=== PATIENT | female | born 1980 | race Caucasian/White ===

== ENCOUNTER 2017-01-02 00:44 | Emergency (ER) | payer OTHER ==
[2017-01-02] MEDS ORDERED: Sodium Chloride 0.9% 1,000 ML IV ONE (00:55)
--- NOTE | 2017-01-02 00:55 | ED Physician Chart ---
Chief Complaint/HPI - Patient Information Date Seen:: 01/02/17 Time Seen:: 00:50 Chief Complaint:: anxiety attack History of Present Illness:: 36-year-old female brought in by EMS with acute, severe, constant, anxiety attack that started apparently about 1-2 hours prior to arrival to the ER. Has associated EtOH intoxication. Patient states that she also took a Gillett but is not in any pain. States that she is a vegan and thinks that maybe she ate something that was non-vegan. Says that she's been on all night long. Denies any suicidal ideations or thoughts. Allergies:: Allergies Allergy/AdvReac Type Severity Reaction Status Date / Time No Known Allergies Allergy Verified 01/02/17 00:52 Historian:: Patient Review:: Nurse's Note Reviewed Review of Systems - Review of Systems Other: Complete system review otherwise unremarkable except as noted in history of present illness. Past Medical History - Past Medical History Past Medical History: No significant medical hx Family History: None Social History: Non Smoker, Alcohol, No Drug Use Family Medical History - Family Member Mother History Unknown: Yes Physical Exam - Physical Examination Other:: INITIAL VITAL SIGNS: Reviewed by me GENERAL: Alert and interactive. Patient is emotional. Smells of alcohol. HEAD: Head is normocephalic and atraumatic EYES: EOMI. PERRL. No scleral icterus. No conjunctival injection ENT: Moist mucous membranes. NECK: Supple. No masses. Full range of motion RESPIRATORY: No tachypnea. Clear breath sounds bilaterally. No wheezing, rales, or rhonchi CV: Regular rate and rhythm. No murmurs, rubs, or gallops ABDOMEN: Soft, non-distended, non-tender. No guarding. No rebound. No masses. EXTREMITIES: No deformity. No cyanosis. No edema. SKIN: Warm and dry. No obvious rashes. NEUROLOGIC: Alert and oriented. Face is symmetric. Speech is normal. Moves all extremities equally. Motor and sensory distally intact. Labs/Radiology/EKG Results - Lab Results Results: Lab Results 01/02/17 01/02/17 01/02/17 Range/Units 00:50 00:50 01:00 WBC 7.4 (4.8-10.8) Th/cmm RBC 3.99 (3.80-5.10) Mil/cmm Hgb 12.3 (11.7-15.5) gm/dL Hct 35.5 (35.0-45.0) % MCV 88.9 (81-100) fl MCH 30.7 (27.0-31.0) pg MCHC Differential 34.6 (28.0-36.0) pg RDW 12.6 (11.5-20.0) % Plt Count 300 (150-400) Th/cmm MPV 7.3 fl Neutrophils % 38.0 L (40.0-80.0) % Lymphocytes % 52.3 H (20.0-50.0) % Monocytes % 6.4 (2.0-10.0) % Eosinophils % 2.7 (0.0-5.0) % Basophils % 0.6 (0.0-2.0) % Sodium 138 (136-145) mEq/L Potassium 3.7 (3.5-5.1) mEq/L Chloride 105 (98-107) mEq/L Carbon Dioxide 25.7 (21.0-31.0) mEq/L Anion Gap 11.0 (7.0-16.0) BUN 10 (7-25) mg/dL Creatinine 0.6 (0.6-1.2) mg/dL Est GFR ( Amer) > 60.0 (>90) ml/min Est GFR (Non-Af Amer) > 60.0 ml/min BUN/Creatinine Ratio 16.7 Glucose 97 (70-105) mg/dL Calcium 8.8 (8.6-10.3) mg/dL Total Bilirubin 0.2 L (0.3-1.0) mg/dL AST 19 (13-39) U/L ALT 15 (7-52) U/L Alkaline Phosphatase 43 (34-104) U/L Total Protein 6.7 (6.0-8.3) gm/dL Albumin 4.2 (3.7-5.3) gm/dL Globulin 2.5 gm/dL Albumin/Globulin Ratio 1.7 (1.0-1.8) Urine Source CLEAN C Urine Color YELLOW Urine Clarity HAZY (CLEAR) Urine pH 6.0 Ur Specific [place] 1.025 (1.005-1.030) Urine Protein NEGATIVE (NEGATIVE) mg/dL Urine Glucose (UA) NEGATIVE (NEGATIVE) mg/dL Urine Ketones TRACE (NEGATIVE) mg/dL Urine Blood TRACE (NEGATIVE) Urine Nitrate NEGATIVE (NEGATIVE) Urine Bilirubin NEGATIVE (NEGATIVE) Urine Urobilinogen 0.2 (0.2 - 1.0) E.U./dL Ur Leukocyte Esterase NEGATIVE (NEGATIVE) Urine RBC 0-2 (0-5) /hpf Urine WBC NONE SEEN (0-5) /hpf Ur Epithelial Cells MODERATE (FEW) /lpf Urine Bacteria FEW (NONE SEEN) /hpf ED Septic Shock - . Is Septic Shock (SBP<90, OR Lactate>4 mmol\L) present?: No Reassessment (Disposition) - Reassessment Reassessment:: This is a 36-year-old female arrived by ambulance with acute anxiety attack. She admitted that she was drinking alcohol prior to arrival. We held off on giving any Benzodiazepines. We did give IV normal saline. Says that she took a Gillett prior to arrival but had no pain. After some time patient was able to calm down. Entire time she was here she was alert and oriented 4. She had a steady gait was noted to walk to and from the bathroom without any assistance or gait abnormality. Labs were essentially unremarkable. Patient was discharged to home. Blood pressure was noted to be elevated over 120/80. There were no signs of hypertension. Discussed the findings with the patient and recommended that the patient follow up with the primary care physician regarding the elevated blood pressure. - Diagnosis Diagnosis:: Acute anxiety attack Elevated blood pressure without diagnosis of hypertension - Aftercare/Follow up Instructions Aftercare/Follow-Up Instructions:: Counseled pt regarding lab results/diagnosis & need follow up, Refer to Discharge Instructions - Patient Disposition Discharge/Transfer:: Home Time:: 01:29 Condition at Disposition:: Improved ED Discharge Plan - Patient Disposition Admit/Discharge/Transfer: PT DISCHARGED HOME Condition at Disposition: Improved Instructions: Anxiety and Panic Attacks
[2017-01-02 01:10] LABS: % BASOPHILS 0.6 % (0.0-2.0); % EOSINOPHILS 2.7 % (0.0-5.0); % LYMPHOCYTES 52.3 % (20.0-50.0); % MONOCYTES 6.4 % (2.0-10.0); HEMATOCRIT 35.5 % (35.0-45.0); HEMOGLOBIN 12.3 gm/dL (11.7-15.5); MEAN CELL VOLUME 88.9 fl (81-100); MEAN CORPUSCULAR HEMOGLOBIN 30.7 pg (27.0-31.0); MEAN CORPUSCULAR HGB CONC 34.6 pg (28.0-36.0); MEAN PLATELET VOLUME 7.3 fl; NEUTROPHILE ABSOLUTE 2.8 Th/cmm (1.8-8.0); PLATELET COUNT 300 Th/cmm (150-400); RED BLOOD COUNT 3.99 Mil/cmm (3.80-5.10); RED CELL DISTRIBUTION WIDTH 12.6 % (11.5-20.0); WHITE BLOOD COUNT 7.4 Th/cmm (4.8-10.8)
[2017-01-02 01:23] LABS: URINE BILIRUBIN NEGATIVE (NEGATIVE); URINE BLOOD TRACE (NEGATIVE); URINE COLOR YELLOW; URINE GLUCOSE (UA) NEGATIVE (NEGATIVE); URINE KETONE TRACE mg/dL (NEGATIVE); URINE PROTEIN NEGATIVE (NEGATIVE); URINE UROBILINOGEN 0.2 E.U./dL (0.2 - 1.0)
[2017-01-02 01:26] LABS: URINE BACTERIA FEW /hpf (NONE SEEN); URINE EPITHELIAL CELLS MODERATE /lpf (FEW); URINE RBC 0-2 /hpf (0-5); URINE WBC NONE SEEN /hpf (0-5)
[2017-01-02 01:30] LABS: ALB/GLOB RATIO 1.7 (1.0-1.8); ALKALINE PHOSPHATASE 43 U/L (34-104); BILIRUBIN,TOTAL 0.2 mg/dL (0.3-1.0); BUN - UREA NITROGEN 10 mg/dL (7-25); BUN/CREATININE RATIO 16.7; CALCIUM SERUM 8.8 mg/dL (8.6-10.3); CARBON DIOXIDE 25.7 mEq/L (21.0-31.0); CHLORIDE 105 mEq/L (98-107); CREATININE - SERUM 0.6 mg/dL (0.6-1.2); GLUCOSE 97 mg/dL (70-105); POTASSIUM SERUM 3.7 mEq/L (3.5-5.1); SGOT 19 U/L (13-39); SGPT/ALT 15 U/L (7-52); SODIUM SERUM 138 mEq/L (136-145)
[2017-01-02 01:33] LABS: AMPHETAMINE URINE NEGATIVE (NEGATIVE); BARBITURATES URINE NEGATIVE (NEGATIVE); METHADONE URINE NEGATIVE (NEGATIVE)
== END 2017-01-02 02:00 | disposition home or self-care (01) ==
LOC: ER 00:44
DX: F41.9 Anxiety disorder, unspecified (principal); R03.0 Elevated blood-pressure reading, without diagnosis of hypertension
CPT/HCPCS: 36415-UA; 80053-TC; 81001-TC; 84484-TC; 85025-TC; 93005; J7030